=== PATIENT | male | born 1985 | race Caucasian/White ===

== ENCOUNTER 2018-09-02 17:12 | Inpatient (IN) | payer OTHER ==
[~2018-09-02] VITALS: Ht 180.3 cm; Wt 165.1 kg
[2018-09-02] MEDS: MORPHINE SULFATE 4 MG/ML SYR IVP PRN (07:00)
[2018-09-02 17:19] VITALS: BP 127/77
--- NOTE | 2018-09-02 17:23 | NUR ---
PT AMB TO RESTROOM FOR URINE SAMPLE. WILL THEN GO TO LOBBY. VSS.
[2018-09-02 18:04] LABS: BASOPHILS # (AUTO) 0.1 K/uL (0.00-0.22); BASOPHILS % (AUTO) 0.8 % (0.0-2.0); EOSINOPHILS # (AUTO) 0.1 K/uL (0-0.4); EOSINOPHILS % (AUTO) 0.9 % (0.0-4.0); HEMATOCRIT 42.2 % (36-52); HEMOGLOBIN 13.9 g/dL (12.0-18.0); LYMPHOCYTES # (AUTO) 2.8 K/uL (2.0-11.5); LYMPHOCYTES % (AUTO) 21.8 % (20.5-51.1); MEAN CORPUSCULAR HEMOGLOBIN 28 pg (27-31); MEAN CORPUSCULAR HGB CONC 33 g/dL (33-37); MEAN CORPUSCULAR VOLUME 83.6 fL (80-94); MONOCYTES # (AUTO) 0.9 K/uL (0.8-1.0); MONOCYTES % (AUTO) 6.6 % (1.7-9.3); NEUTROPHILS # (AUTO) 9.1 K/uL (1.8-7.7); NEUTROPHILS % (AUTO) 69.9 % (42.2-75.2); PLATELET COUNT (AUTO) 489 K/uL (140-450); RED BLOOD CELL COUNT(AUTO) 5.05 MIL/uL (4.20-6.10)
[2018-09-02 18:24] LABS: ALBUMIN 3.1 g/dL (3.4-5.0); ANION GAP 12.2 (8-16); CARBON DIOXIDE 30.1 mmol/L (21-32); POTASSIUM 4.3 mmol/L (3.5-5.1); TOTAL BILIRUBIN 0.5 mg/dL (0.0-1.0)
--- NOTE | 2018-09-02 18:30 | NUR ---
STATUS IS UNCHANGED. VSS. WILL CONTINUE TO MONITOR.
--- NOTE | 2018-09-02 19:22 | NUR ---
PATIENT TO ER BED 3.
[2018-09-02] MEDS ORDERED: HYDROcodone/APAP 5/325 MG 1 TAB TAB PO ONE (19:50)
[2018-09-02] MEDS ORDERED: KETOROLAC 30 MG/ML VIAL IM ONE (19:50)
--- NOTE | 2018-09-02 20:00 | NUR ---
32 YO MALE PRESENTS TO ED FOR C/O ABDOMINAL PAIN TO RLQ AND LLQ. PT HAS PMH OF GALLSTONES AND DIVERTICULITIS. PT DENIES ALLERGIES. PT AAOX4 MOVING ALL EXTREMITIES, AMBULATING @ BEDSIDE. NSR 70S NO EDEMA NOTED. LUNGS CLEAR EVEN AND UNLABORED, ABD SOFT NON DISTENDED, HYPOACTIVE BOWEL SOUNDS NOTED. PT VOIDING. SKIN INTACT. WILL UPDATE ER MD WILL CONTINUE TO OBSERVE.
[2018-09-02] MEDS ORDERED: LEVOFLOXACIN 750 MG/D5W PREMIX 150 ML IV ONE (20:15)
[2018-09-02] MEDS ORDERED: metroNIDAZOLE 500 MG/NS PREMIX 100 ML IV ONE (20:15)
[2018-09-02] MEDS ORDERED: KETOROLAC 30 MG/ML VIAL IVP ONE (20:15)
[2018-09-02] MEDS ORDERED: NACL 0.9% 2,000 ML IV ONE (20:15)
[2018-09-02 20:35] LABS: PROTHROMBIN TIME 10.7 secs (10.8-13.4)
[2018-09-02] MEDS ORDERED: ACETAMINOPHEN 325 MG TAB PO PRN (21:05)
[2018-09-02 21:30] VITALS: BP 104/50
[2018-09-02] MEDS: NACL 0.9% 1,000 ML IV SCH (21:30)
--- NOTE | 2018-09-02 21:35 | NUR ---
Patient will be admitted to care of dr. moore. Admited to [facility]. Will go to room 120a. Belongings list completed. Report to ki at bedside given.
--- NOTE | 2018-09-02 21:38 | NUR ---
RECEIVED PT FROM ER VIA DIDI. PT AWAKE, ALERT AND ORIENTED X 4. PT AMBULATORY. MED-SURG PT.ORIENTED TO UNIT ROUTINES. PT. NOT IN PAIN AT THIS TIME AND NOT IN RESPIRATORY DISTRESS. WITH IV INFUSING ON RIGHT AC. G 20, PATENT AND INFUSING WELL.POC REVIEWED. PT PLACED AT LOWEST BED POSITION, CALL LIGHT WITHIN REACH
[2018-09-02] MEDS ORDERED: PIPERACILLIN/TAZOBACTAM 3.375 GM in DEXTROSE 5% 50 ML IV SCH (22:00)
[2018-09-02] MEDS ORDERED: PIPERACILLIN/TAZOBACTAM 3.375 GM VIAL IV ONE (22:22)
[2018-09-03] VITALS: BP 106/50
--- NOTE | 2018-09-03 00:05 | NUR ---
PT SLEEPING IN BED. COMFORTABLE. STABLE. WILL CONTINUE TO MONITOR.
[2018-09-03] MEDS: MORPHINE SULFATE 4 MG/ML SYR IVP PRN ×3 (01:55→18:49)
--- NOTE | 2018-09-03 01:55 | NUR ---
PT C/O OF 06/05 PAIN. PAIN MEDS GIVEN ORDERED. DUE FOR REASSESSMENT. WILL CONTINUE TO MONITOR
--- NOTE | 2018-09-03 01:56 | NUR ---
PT FELT NAUSEOUS. MEDS GIVEN.
[2018-09-03] MEDS: ONDANSETRON 4 MG/2 ML VIAL IVP PRN (01:57)
--- NOTE | 2018-09-03 02:55 | NUR ---
PAIN REASSESSED. PAIN DECREASED VERBALIZED BY PT TO 2/10. TOLERABLE. PT WENT TO BATHROOM WITH STANDBY ASSIST, PT AMBULATORY. WILL CONTINUE TO MONITOR
[2018-09-03 04:00] VITALS: BP_SYST 108; BP_SYST 110; BP_DIAS 55; BP_DIAS 60
[2018-09-03] MEDS ORDERED: PIPERACILLIN/TAZOBACTAM 3.375 GM in DEXTROSE 5% 50 ML IV SCH (05:00)
[2018-09-03] MEDS ORDERED: PIPERACILLIN/TAZOBACTAM 3.375 GM VIAL IV ONE (05:22)
--- NOTE | 2018-09-03 07:00 | NUR ---
PT WAS SEEN BY DR. DIAZ HER TO BE DISCHARGE TODAY. AND WILL ARRANGE FOR TRANSPORT HOME Addendum: 09/03/18 at 0815 by Blanca Cooper RN WRONG PT
[2018-09-03] MEDS: NACL 0.9% 1,000 ML IV SCH ×2 (07:01→12:00)
--- NOTE | 2018-09-03 07:07 | NUR ---
PT C/O OF 06/05 PAIN GIVEN MORPHINE. INFORMED NEXT RN FOR PAIN REASSESMENT
--- NOTE | 2018-09-03 07:15 | NUR ---
ENDORSED TO AM SHIFT NURSE. PT IN STABLE CONDITION. MEDICATION FOR PAIN RECENTLY GIVEN DUE FOR PAIN REASSESSMENT.
--- NOTE | 2018-09-03 07:16 | NUR ---
RECEIVED PATIENT FROM DENTAL BILLING SPECIALIST NURSE AT BEDSIDE FOR CONTINUITY OF CARE. PT AWAKE, ALERT AND ORIENTED X 4. PT AMBULATORY. MED-SURG PT. IV ON RIGHT AC. G 20, PATENT AND INFUSING IVF WELL. UPDATED BOARD, UPDATED PATIENT ON PLAN OF CARE. PATIENT VERBALIZED UNDERSTANDING. SAFETY PRECAUTION IN PLACE, CALL LIGHT WITHIN REACH, WILL CONTINUE TO MONITOR PATIENT.
[2018-09-03 07:29] LABS: BASOPHILS # (AUTO) 0.1 K/uL (0.00-0.22); BASOPHILS % (AUTO) 0.5 % (0.0-2.0); EOSINOPHILS # (AUTO) 0.1 K/uL (0-0.4); HEMATOCRIT 37.6 % (36-52); HEMOGLOBIN 12.1 g/dL (12.0-18.0); LYMPHOCYTES # (AUTO) 2.3 K/uL (2.0-11.5); LYMPHOCYTES % (AUTO) 19.9 % (20.5-51.1); MEAN CORPUSCULAR HEMOGLOBIN 27 pg (27-31); MEAN CORPUSCULAR HGB CONC 32 g/dL (33-37); MEAN CORPUSCULAR VOLUME 84.1 fL (80-94); MONOCYTES # (AUTO) 0.8 K/uL (0.8-1.0); MONOCYTES % (AUTO) 7.2 % (1.7-9.3); NEUTROPHILS # (AUTO) 8.4 K/uL (1.8-7.7); NEUTROPHILS % (AUTO) 71.4 % (42.2-75.2); PLATELET COUNT (AUTO) 415 K/uL (140-450); RED BLOOD CELL COUNT(AUTO) 4.47 MIL/uL (4.20-6.10); RED CELL DISTRIBUTION WIDTH 14.1 % (11.6-13.7); WHITE BLOOD COUNT (AUTO) 11.8 K/uL (4.8-10.8)
[2018-09-03 08:00] VITALS: BP 113/56
[2018-09-03 08:09] LABS: ALBUMIN 2.5 g/dL (3.4-5.0); ANION GAP 12.5 (8-16); CARBON DIOXIDE 26.8 mmol/L (21-32); POTASSIUM 4.3 mmol/L (3.5-5.1); TOTAL BILIRUBIN 0.4 mg/dL (0.0-1.0)
--- NOTE | 2018-09-03 08:25 | NUR ---
PATIENT HAS BEEN SCREENED AND CATEGORIZED HIGH NUTRITION RISK. PATIENT WILL BE SEEN WITHIN 1-2 DAYS OF ADMISSION. 09/03/18-09/04/[address]
[2018-09-03] MEDS: ENOXAPARIN 40 MG/0.4 ML SYR SUBQ SCH (08:41)
--- NOTE | 2018-09-03 08:41 | NUR ---
ORDERED MEDICATION GIVEN. PATIENT TOLERATED IT WELL. NO SIGNS OF DISTRESS OR SOB NOTED ON ROOM AIR. WILL CONTINUE TO MONITOR PATIENT.
--- NOTE | 2018-09-03 11:12 | NUR ---
PATIENT C/O NAUSEA, ZOFRAN OFFERED. PATIENT REFUSED FOR NOW. PATIENT REPOSITIONED IN BED BY SELF FOR COMFORT. WILL REASSESS IF PATIENT NEEDS ZOFRAN OR NOT.
--- NOTE | 2018-09-03 11:39 | NUR ---
09/03/18 RD FOLLOW UP COMPLETED PLEASE REFER TO NUTRITION ASSESSMENT UNDER CARE ACTIVITY FOR ESTIMATED NUTRITIONAL NEEDS. CONTINUE REGULAR DIET TOLERATED DIETITIAN PROVIDED NUTRITIONAL EDUCATION ON THE DIFFERENT DIETS PATIENT SHOULD FOLLOW DEPENDING ON SYMPTOMS. RD TO FOLLOW-UP 3-5 DAYS, MODERATE RISK JUJU MALDONADO RD
[2018-09-03] MEDS: PIPER/TAZO 3.375GM/D5W PREMIX 50 ML IV SCH ×2 (12:44→22:55)
--- NOTE | 2018-09-03 12:44 | NUR ---
ORDERED MEDICATION GIVEN. PATIENT TOLERATED IT WELL. NO SIGNS OF DISTRESS OR SOB NOTED ON ROOM AIR. WILL CONTINUE TO MONITOR PATIENT.
--- NOTE | 2018-09-03 14:13 | NUR ---
PATIENT C/O 7/10 ABD PAIN, IVP PRN MORPHINE GIVEN. PATIENT TOLERATED IT WELL. PATIENT NOW RESTING IN BED, WILL CONTINUE TO MONITOR PATIENT.
[2018-09-03 16:00] VITALS: BP 106/70
--- NOTE | 2018-09-03 17:16 | NUR ---
PATIENT REPORT GIVEN TO JANITOR HEAD NURSE AT BEDSIDE FOR CONTINUITY OF CARE. PATIENT RESTING AND IN STABLE CONDITION. Addendum: 09/03/18 at 1 by Pito Garces RN CORRECT TIME: 1915. ALSO ENDORSED PAIN REASSESSMENT TO JANITOR HEAD NURSE.
--- NOTE | 2018-09-03 18:49 | NUR ---
PATIENT C/O 05/05 ABD PAIN, IVP PRN MORPHINE GIVEN. PATIENT TOLERATED IT WELL. CONSENT FOR ABD/PELVIS WITH CT CONTRAST OBTAINED. URINE SAMPLE OBTAINED AND DROPPED OFF TO LAB. PATIENT NOW RESTING IN BED, WILL CONTINUE TO MONITOR PATIENT.
--- NOTE | 2018-09-03 19:20 | NUR ---
RECD. RESTING IN BED, AWAKE, A/OX4, OBESE. RESPIRATION EVEN AND UNLABORED. IV OF NS AT 100 ML/HR INFUSING, RIGHT AC G20. WATCHING TV. PLAN OF CARE FOR THE SHIFT DISCUSSED. VERBALIZED UNDERSTANDING. DENIES PAIN 0/10.
[2018-09-03 19:47] LABS: APPEARANCE,URINE CLEAR (CLEAR); BILIRUBIN,URINE NEGATIVE (NEGATIVE); BLOOD, URINE NEGATIVE (NEGATIVE); COLOR,URINE YELLOW (YELLOW); LEUKOCYTE ESTERASE ,URINE NEGATIVE (NEGATIVE); NITRITE, URINE NEGATIVE (NEGATIVE); UGLUCOSE NEGATIVE (NEGATIVE)
--- NOTE | 2018-09-03 19:58 | NUR ---
Patient's Plan of Care was discussed and reviewed with SENIOR PAYROLL ADMINISTRATOR: DANTE
--- NOTE | 2018-09-03 22:00 | NUR ---
STARTED TO DRINK THE PO CONTRAST FOR CT OF ABD/PELVIS.
--- NOTE | 2018-09-03 23:45 | NUR ---
FINISHED DRINKING THE PO CONTRAST. AMBULATED FOR 15 MINUTES IN THE HALLWAY.
--- NOTE | 2018-09-04 01:30 | NUR ---
TO RADIOLOGY FOR CT OF ABD/PELVIS VIA W/C ACCOMPANIED BY TECH.
[2018-09-04 01:50] VITALS: BP 132/70
[2018-09-04] MEDS: MORPHINE SULFATE 4 MG/ML SYR IVP PRN (01:50)
--- NOTE | 2018-09-04 02:00 | NUR ---
BACK TO ROOM FROM CT. MADE COMFORTABLE IN BED.
[2018-09-04] MEDS: NACL 0.9% 1,000 ML IV SCH ×2 (03:01→09:00)
--- NOTE | 2018-09-04 03:01 | NUR ---
REFUSED TO BE CONNECTED TO IV MACHINE, WANTS IN THE MORNING FOR EASY MOVING OUT TO BED TO .
[2018-09-04] MEDS: PIPER/TAZO 3.375GM/D5W PREMIX 50 ML IV SCH ×2 (05:44→12:24)
[2018-09-04 07:10] LABS: BASOPHILS # (AUTO) 0.1 K/uL (0.00-0.22); BASOPHILS % (AUTO) 0.6 % (0.0-2.0); EOSINOPHILS # (AUTO) 0.2 K/uL (0-0.4); EOSINOPHILS % (AUTO) 1.6 % (0.0-4.0); HEMATOCRIT 34.9 % (36-52); HEMOGLOBIN 11.6 g/dL (12.0-18.0); LYMPHOCYTES # (AUTO) 2.5 K/uL (2.0-11.5); LYMPHOCYTES % (AUTO) 24.9 % (20.5-51.1); MEAN CORPUSCULAR HEMOGLOBIN 28 pg (27-31); MEAN CORPUSCULAR HGB CONC 33 g/dL (33-37); MONOCYTES # (AUTO) 0.6 K/uL (0.8-1.0); MONOCYTES % (AUTO) 6.6 % (1.7-9.3); NEUTROPHILS # (AUTO) 6.5 K/uL (1.8-7.7); NEUTROPHILS % (AUTO) 66.3 % (42.2-75.2); PLATELET COUNT (AUTO) 424 K/uL (140-450); RED BLOOD CELL COUNT(AUTO) 4.21 MIL/uL (4.20-6.10); RED CELL DISTRIBUTION WIDTH 13.9 % (11.6-13.7); WHITE BLOOD COUNT (AUTO) 9.9 K/uL (4.8-10.8)
[2018-09-04 07:20] LABS: ANION GAP 10.2 (8-16); CARBON DIOXIDE 26.9 mmol/L (21-32); POTASSIUM 4.1 mmol/L (3.5-5.1)
--- NOTE | 2018-09-04 07:30 | NUR ---
CONDITION REMAIN STABLE. ENDORSED TO AM SHIFT NURSES FOR CONTINUITY OF CARE.
--- NOTE | 2018-09-04 08:00 | NUR ---
RECEIVED REPORT FROM KALE COCHRAN FOR CONTINUITY OF CARE. PATIENT AWAKE ALERT AND ORIENTED X 4 NO S/S OF RESP DISTRESS NOTED ABLE TO MAKE NEEDS KNOWN. IV SITE RT AC G 20 INTACT AND PATENT. IVF INFUSING WELL PLAN OF CARE DISCUSSED WITH THE PATIENT VITALS STABLE WILL CONTINUE TO MONITOR.
[2018-09-04] MEDS: ENOXAPARIN 40 MG/0.4 ML SYR SUBQ SCH (09:00)
--- NOTE | 2018-09-04 09:00 | NUR ---
NO MEDS DUE TO BE GIVEN. DR CONDON VISITED PATIENT NEW ORDER CONSULT TO DR ORTEZ
--- NOTE | 2018-09-04 10:30 | NUR ---
DR ORTEZ VISITED PATIENT NEW ORDER TO TRANSFER TO HIGHER LEVEL OF CARE.
--- NOTE | 2018-09-04 11:42 | NUR ---
CM NOTE RECEIVED ORDER TO TRANSFER TO [facility]. [facility] KHAI MORAES MADE AWARE. PER [facility] KHAI MORAES, FOR [facility]ORT [id number]. SPOKE WITH LIZZY, [facility] ENVIRONMENT COORDINATOR PH# [phone] WHO REQUESTED FOR FACESHEET, ORDER TO TRANSFER, H&P, PROGRESS NOTES, IMAGING RESULT, LABS AND MED LIST TO BE FAXED TO [facility] AT [phone]. FAXED INFORMATION. I ALSO GAVE HER THE NUMBER TO THE NURSING STATION WHERE PATIENT IS IN CASE THEY WOULD HAVE A BED AVAILABLE AT A LATER TIME. CHARGE NURSE WESTLEY PRABHAKAR. Addendum: 09/04/18 at 1149 by Denisha Blanchard CM CORRECTION [facility] ENVIRONMENT COORDINATOR PH# [phone]
[2018-09-04 12:00] VITALS: BP 126/77
--- NOTE | 2018-09-04 12:00 | NUR ---
SLEEPING NO COMPLAIN OF PAIN VITALS STABLE STILL WAITING FOR TRANSFER.
[2018-09-04] MEDS: ONDANSETRON 4 MG/2 ML VIAL IVP PRN (12:24)
--- NOTE | 2018-09-04 14:48 | NUR ---
CM NOTE PER LIZZY OF [facility] TRANSFER [facility], PATIENT CAN GO TO [address] CONDON TO PASS BY THE ER ADMITTING FIRST, NUMBER TO CALL FOR REPORT [phone] [facility], PATIENT WILL BE PICKED UP BY DELFINO TOLBERT AT 5PM OR 6PM TODAY GOING TO [facility] CTR TO PASS BY THE ER ADMITTING FIRST CHARGE NURSE WESTLEY PRABHAKAR
--- NOTE | 2018-09-04 15:00 | NUR ---
I GOT A CALL FRO Cabrera RIDLEY THAT PATIENT CAN BE TRANSFERED TO [facility] UNDER THE CARE OF DR CONDON AND SURGEON WILL BE DR EPSTEIN. INFORMED PATIENT AND PATIENT AGREED NOTIFIED HIS FAMILY ,DENIES ANY PAIN STABLE CONDITION.
--- NOTE | 2018-09-04 16:10 | NUR ---
DISCHARGE PATIENT TO [facility] ROOM 591B VIA AMBULANCE ALL DISCHARGE INSTRUCTION GIVEN VERBALIZED UNDERSTANDING , REPORT GIVEN TO BLANCA WILKINSON ,STABLE CONDITION UPON DISCHARGE.
== END 2018-09-04 16:10 | disposition short-term general hospital (02) | DRG 244 ==
LOC: MED 17:12 → MTU 21:01
PROVIDERS: ADMIT Internal Medicine; ATTEND Internal Medicine
DX: K57.20 Diverticulitis of large intestine with perforation and abscess without bleeding (principal); K63.2 Fistula of intestine; E66.01 Morbid (severe) obesity due to excess calories; N32.1 Vesicointestinal fistula; Z68.43 Body mass index [BMI] 50.0-59.9, adult
CPT/HCPCS: 36415; 80048; 80053; 81003; 83605; 83690; 85025; 85610; 87040; 87081; 87086; 96372; 96374; 99285; J1650; J1885; J1956; J2270; J2405; J2543; J3490; J7030; J7060; Q9967

== ENCOUNTER 2018-11-08 01:25 | Inpatient (IN) | payer OTHER ==
[~2018-11-08] VITALS: Ht 180.3 cm; Wt 145.6 kg
[2018-11-08 01:38] VITALS: BP 127/90
--- NOTE | 2018-11-08 01:40 | NUR ---
ASSUMED CARE OF PT AT THIS TIME. C/O REDNESS AND PURULENT DRAINAGE AROUND OSTOMY SITE/UMBILICUS X 2 DAYS. AAOX4 WITH EVEN AND STEADY GAIT; PATIENT STATES PAIN OF 8/10; VSS; PATIENT POSITIONED FOR COMFORT; HOB ELEVATED; BEDRAILS UP X2; BED DOWN. ER MD MADE AWARE OF PT STATUS. WILL CONTINUE TO MONITOR.
[2018-11-08] MEDS ORDERED: BACITRACIN OINT 500 UNITS/GM PKT TP ONE (01:55)
[2018-11-08] MEDS ORDERED: MORPHINE SULFATE 4 MG/ML SYR IVP ONE ×2 (02:05→03:40)
[2018-11-08 02:21] LABS: BASOPHILS # (AUTO) 0.1 K/uL (0.00-0.22); BASOPHILS % (AUTO) 1.5 % (0.0-2.0); EOSINOPHILS # (AUTO) 0.3 K/uL (0-0.4); EOSINOPHILS % (AUTO) 3.1 % (0.0-4.0); HEMOGLOBIN 10.7 g/dL (12.0-18.0); LYMPHOCYTES # (AUTO) 2.9 K/uL (2.0-11.5); LYMPHOCYTES % (AUTO) 30.2 % (20.5-51.1); MEAN CORPUSCULAR HEMOGLOBIN 26 pg (27-31); MEAN CORPUSCULAR HGB CONC 33 g/dL (33-37); MEAN CORPUSCULAR VOLUME 80.5 fL (80-94); MONOCYTES # (AUTO) 0.5 K/uL (0.8-1.0); MONOCYTES % (AUTO) 4.8 % (1.7-9.3); NEUTROPHILS # (AUTO) 5.8 K/uL (1.8-7.7); NEUTROPHILS % (AUTO) 60.4 % (42.2-75.2); PLATELET COUNT (AUTO) 477 K/uL (140-450); RED CELL DISTRIBUTION WIDTH 16.1 % (11.6-13.7); WHITE BLOOD COUNT (AUTO) 9.6 K/uL (4.8-10.8)
[2018-11-08 02:33] LABS: POTASSIUM 3.4 mmol/L (3.5-5.1)
[2018-11-08 02:34] LABS: ANION GAP 13.4 (8-16); CREATININE 1.2 mg/dL (0.7-1.3)
[2018-11-08 02:40] LABS: ALBUMIN 3.1 g/dL (3.4-5.0); TOTAL BILIRUBIN 0.4 mg/dL (0.0-1.0)
[2018-11-08 02:44] LABS: APPEARANCE,URINE CLEAR (CLEAR); BILIRUBIN,URINE NEGATIVE (NEGATIVE); BLOOD, URINE NEGATIVE (NEGATIVE); COLOR,URINE YELLOW (YELLOW); LEUKOCYTE ESTERASE ,URINE NEGATIVE (NEGATIVE); NITRITE, URINE NEGATIVE (NEGATIVE); UGLUCOSE NEGATIVE (NEGATIVE)
--- NOTE | 2018-11-08 03:20 | NUR ---
NEW COLOSTOMY BAG PLACED AT THIS TIME.
[2018-11-08] MEDS ORDERED: CEPHALEXIN 500 MG CAP PO ONE (03:25)
[2018-11-08] MEDS ORDERED: SULFAMETH/TRIMETH DS 800/160MG 1 TAB PO ONE (03:25)
--- NOTE | 2018-11-08 03:45 | NUR ---
PT REMOVED COLOSTOMY BAG DUE TO PAIN. PT WILL BE ADMITTED.
--- NOTE | 2018-11-08 04:05 | NUR ---
PT RESTING. NAD. VSS. PT AWAITS ADMISSION. WILL CONTINUE TO MONITOR.
--- NOTE | 2018-11-08 05:20 | NUR ---
PT BROUGHT UP VIA GURNEY AND AMBULATED TO 119B. REPORT RECEIVED FROM IZABELLA WILKINSON RECREATION THERAPY DIRECTOR ER NURSE AT BEDSIDE FOR CONTINUITY OF CARE, PT IN STABLE CONDITION. PT AOX4 SKIN INTACT EXCEPT FOR AREAS OF EXSCORIATED SKIN ON LOWER ABD. PT HAS OSTOMY SITE ON LOWER ABD. PT REPORT BEING UNABLE TO WEAR COLOSTOMY BAG DUE TO SKIN BEING EXCORIATED AND LEAKING FLUID. MRSA ADMISSION SWAB DONE V/S FOLLOWS T 97.6 P 83 R 20 B/P 139/75 02 98% WITH R/A..
--- NOTE | 2018-11-08 05:20 | NUR ---
Patient will be admitted to [facility]. Admitted to MED/SURG. Will go to room 119B. Belongings list completed. Report to JAJA BALLARD.
--- NOTE | 2018-11-08 05:45 | NUR ---
CALLED DR. CONDON MANAGER MARKET DR. MAXWELL LEFT MESSAGE, REGARDING ADMISSION, AWAITING CALL BACK
--- NOTE | 2018-11-08 06:30 | NUR ---
RECEIVED CALL BACK FROM DR. MAXWELL, NEW ORDERS NOTED.
[2018-11-08] MEDS: NACL 0.45% 1,000 ML IV SCH ×2 (06:40→21:00)
[2018-11-08 07:09] VITALS: BP 139/75
--- NOTE | 2018-11-08 07:20 | NUR ---
REPORT GIVEN TO DYANA RN DAYSHIFT NURSE AT BEDSIDE FOR CONTINUITY OF CARE, PT INSTABLE CONDITION.
--- NOTE | 2018-11-08 07:25 | NUR ---
RECEIVED REPORT FROM PM NURSE AT BEDSIDE. PT LYING ON HIS BED. HAS THE COLOSTOMY SITE OPEN , LEAKING FLUIDS AND STOOL FROM THE SITE . SURROUNDING AREA IS RED IN COLOR. SKIN IS INTACT OTHER THAN THE COLON SITE. PT COMPLAINING OF PAIN AT THIS TIME. PT HAS LF AC 22 G. IVF INFUSING WELL. PT IS ON REGULAR DIET. CALL LIGHT WITHIN PT REACH. INFORMED HIME TO USE CALL LIGHT FOR ANY HELP. WILL CONTINUE TO MONITOR PT.
[2018-11-08] MEDS: MORPHINE SULFATE 4 MG/ML SYR IVP PRN ×3 (08:27→21:05)
[2018-11-08] MEDS: PIPER/TAZO 3.375GM/D5W PREMIX 50 ML IV SCH ×3 (08:28→17:53)
--- NOTE | 2018-11-08 09:00 | NUR ---
ADMINISTERED MEDS TO PT ORDERED. PT HAS THE COLOSTOMY SITE LEAKING. PUT THE COLOSTOMY BAG . PT COMPLAINING FOP PAIN AT THE SITE. ADMINISTERED MEDS. NO SIGN OF DISTRESS NOTED. CALL LIGHT WITHIN PT REACH. WILL CONTINUE TO MONITOR PT.
--- NOTE | 2018-11-08 11:00 | NUR ---
PT OFF THE UNIT. WENT FOR CT ABDOMEN WITH COOKER SYRUP TO RADIOLOGY. PT IN STABLE CONDITION.
--- NOTE | 2018-11-08 11:58 | NUR ---
ADMINISTERED MEDS TO PT. TOLERATED WELL. PT SLEEPING AT THIS TIME. NO SIGN OF DISTRESS. WILL CONTINUE TO MONITOR PT.
--- NOTE | 2018-11-08 13:00 | NUR ---
CHECKED ON PT. SLEEPING ON HIS BED AT THIS TIME. NO SIGN OF DISTRESS NOTED. CALL LIGHT WITHIN PT REACH. WILL CONTINUE TO MONITOR PT.
--- NOTE | 2018-11-08 14:55 | NUR ---
CHECKED ON PT. COMPLAIN OF PAIN AND ITCHING AT THE PERIPHERAL REGION OF THE STOMA, CLEANED WITH NS , PAT DRY AND PUT DRY DRESSING ON THE SITE. . PUT THE COLOSTOMY BAG AT SITE. MEDICATED WITH PAIN MEDS. PT TOLERATED WELL. WILL REASSESS PAIN AFTER HOUR. CALL LIGHT WITHIN PT REACH. INFORMED TO USE CALL LIGHT FOR ANY HELP. WILL CONTINUE TO MONITOR PT.
[2018-11-08 16:00] VITALS: BP 139/99
--- NOTE | 2018-11-08 16:00 | NUR ---
CHANGED THE COLOSTOMY BAG, PREVIOUS BAG WAS LEAKING FROM THE PERIPHERAL REGION. PT STATES BURNING SENSATION AT OSTOMY PERIPHERAL REGION IS TOLERABLE. NO SIGN OF DISTRESS NOTED. CALL LIGHT WITHIN PT REACH. INFORMED HIM TO USE CALL LIGHT FOR ANY HELP. WILL CONTINUE TO MONITOR PT.
--- NOTE | 2018-11-08 18:02 | NUR ---
ADMINISTERED MEDS TO PT ORDERED. NO SIGN OF DISTRESS NOTED. COLOSTOMY BAG WORKING AT THIS TIME . NO SIGN OF DISTRESS NOTED. WILL CONTINUE TO MONITOR PT.
--- NOTE | 2018-11-08 19:15 | NUR ---
ENDORSED PT TO PM NURSE AT BEDSIDE. PT IN STABLE CONDITION.
--- NOTE | 2018-11-08 19:16 | NUR ---
RECEIVED REPORT FROM JAJA TURPIN FOR CONTINUITY OF CARE. PT IS A/OX4 ON ROOM AIR. PT IS ABLE TO MAKE NEEDS KNOWN, ABLE TO FOLLOW COMMANDS. PT IS ON BEDREST AND SKIN IS INTACT. PT HAS 18G IV TO LEFT AC, ASYMPTOMATIC AND INTACT. COLOSTOMY BAG IN PLACE. VITAL SIGNS WITHIN NORMAL LIMITS. PT STABLE, DENIES PAIN, NO SIGNS OF DISTRESS NOTED AT THIS TIME. PT POSITIONED FOR COMFORT. BED IN LOWEST POSITION, BED ALARM ON. CALL LIGHT WITHIN REACH, WILL CONTINUE TO MONITOR.
--- NOTE | 2018-11-08 19:50 | NUR ---
CHANGED COLOSTOMY BAG AND CLEANED SITE, BECAUSE IT WAS LEAKING. PT TOLERATED WELL.
--- NOTE | 2018-11-08 20:45 | NUR ---
WOUND CARE NURSE AT BEDSIDE.
--- NOTE | 2018-11-08 21:04 | NUR ---
PT. WITH KIMBERLY-OSTOMY SKIN MULTIPLE EROSION AND SKIN IRRITATION, REDNESS WITH 6X6CM OSTOMY IS FUNCTIONING. RECOMMENDATIONS OSTOMY CARE PER PROTOCOL AND DURING OSTOMY CARE PLEASE FOLLOW SKIN CARE INSTRUCTION BELOW: -APPLY SKIN PREP TO KIMBERLY-OSTOMY SKIN, -APPLY STOMA ADHESIVE POWDER TO IRRITATED SKIN BY DUSTING -USE AN ANGEL SEAL AROUND OSTOMY, USE 2- PIECES OSTOMY DEVICES, APPLY WAFER TO OSTOMY AND ATTACHED POUCH TO WAFER., CHANGE WAFER WEEKLY. EMPTY AND RINSE POUCH WHEN IT IS 2/3 FULL. -CONTINUE TO FOLLOW UP OSTOMY NURSE APPOINTMENT Q FRIDAY UPON DISCHARGE ALL ABOVE RECOMMENDATIONS DISCUSSED WITH PT. AND PRIMARY RN. PT. VERBALIZES UNDERSTANDING
--- NOTE | 2018-11-09 | NUR ---
VITAL SIGNS WITHIN NORMAL LIMITS. PT STABLE, DENIES PAIN, NO SIGNS OF DISTRESS NOTED AT THIS TIME. PT POSITIONED FOR COMFORT. BED IN LOWEST POSITION, BED ALARM ON. CALL LIGHT WITHIN REACH, WILL CONTINUE TO MONITOR.
[2018-11-09] MEDS: PIPER/TAZO 3.375GM/D5W PREMIX 50 ML IV SCH ×4 (00:20→18:26)
[2018-11-09] MEDS: MILD SOAP AND WATER TP SCH ×2 (00:20→16:37)
--- NOTE | 2018-11-09 04:15 | NUR ---
NO SIGNS OF DISTRESS NOTED AT THIS TIME. PT POSITIONED FOR COMFORT. BED IN LOWEST POSITION, BED ALARM ON. CALL LIGHT WITHIN REACH, WILL CONTINUE TO MONITOR.
[2018-11-09] MEDS: MORPHINE SULFATE 4 MG/ML SYR IVP PRN ×3 (05:25→18:26)
--- NOTE | 2018-11-09 06:30 | NUR ---
OSTOMY BAG LEAKING AGAIN. FOLLOWED WOUND CARE NURSE'S INSTRUCTIONS AND REPLACED OSTOMY BAG AGAIN.
[2018-11-09 06:33] LABS: BASOPHILS # (AUTO) 0.1 K/uL (0.00-0.22); BASOPHILS % (AUTO) 1.1 % (0.0-2.0); EOSINOPHILS # (AUTO) 0.3 K/uL (0-0.4); EOSINOPHILS % (AUTO) 4.5 % (0.0-4.0); HEMATOCRIT 31.5 % (36-52); HEMOGLOBIN 10.2 g/dL (12.0-18.0); LYMPHOCYTES # (AUTO) 1.3 K/uL (2.0-11.5); MEAN CORPUSCULAR HEMOGLOBIN 26 pg (27-31); MEAN CORPUSCULAR HGB CONC 32 g/dL (33-37); MEAN CORPUSCULAR VOLUME 80.9 fL (80-94); MONOCYTES # (AUTO) 0.5 K/uL (0.8-1.0); MONOCYTES % (AUTO) 5.9 % (1.7-9.3); NEUTROPHILS # (AUTO) 5.5 K/uL (1.8-7.7); NEUTROPHILS % (AUTO) 71.5 % (42.2-75.2); PLATELET COUNT (AUTO) 423 K/uL (140-450); RED BLOOD CELL COUNT(AUTO) 3.89 MIL/uL (4.20-6.10); RED CELL DISTRIBUTION WIDTH 16.4 % (11.6-13.7); WHITE BLOOD COUNT (AUTO) 7.6 K/uL (4.8-10.8)
[2018-11-09 07:36] LABS: ANION GAP 14.9 (8-16); CARBON DIOXIDE 23.6 mmol/L (21-32); CREATININE 1.3 mg/dL (0.7-1.3); POTASSIUM 3.5 mmol/L (3.5-5.1)
--- NOTE | 2018-11-09 07:36 | NUR ---
ENDORSED PT TO DAY SHIFT JAJA THOMAS FOR CONTINUITY OF CARE. PT IN STABLE CONDITION.
--- NOTE | 2018-11-09 07:37 | NUR ---
RECEIVED REPORT FROM SEAT INSTALLER NURSE. PT IN STABLE CONDITION. RESPIRATIONS EVEN AND UNLABORED. IV INTACT AND PATENT. SAFETY MEASURES IN PLACE. CALL LIGHT AT BEDSIDE. BED IN LOW POSITION. WILL CONTINUE TO MONITOR.
--- NOTE | 2018-11-09 07:56 | NUR ---
PATIENT HAS BEEN SCREENED AND CATEGORIZED HIGH NUTRITION RISK. PATIENT WILL BE SEEN WITHIN 1-2 DAYS OF ADMISSION. 11/09/[address]
[2018-11-09 08:00] VITALS: BP 124/85
--- NOTE | 2018-11-09 09:00 | NUR ---
PT LYING IN BED IN STABLE CONDITION. RESPIRATIONS EVEN AND UNLABORED. WILL CONTINUE TO MONITOR.
[2018-11-09] MEDS ORDERED: ACETAMINOPHEN 325 MG TAB PO PRN (09:55)
[2018-11-09 12:00] VITALS: BP 148/82
--- NOTE | 2018-11-09 12:00 | NUR ---
GAVE PAIN MEDICATION AT THIS TIME. PT TOLERATED WELL.
[2018-11-09] MEDS: NACL 0.45% 1,000 ML IV SCH ×2 (12:55→22:41)
--- NOTE | 2018-11-09 14:34 | NUR ---
11/09/18 RD INITIAL ASSESSMENT COMPLETED PLEASE REFER TO NUTRITION ASSESSMENT UNDER CARE ACTIVITY FOR ESTIMATED NUTRITIONAL NEEDS. 1. RECOMMEND LOW RESIDUAL DIET TOLERATED 2. RECOMMEND MULTIVITAMIN QD 3. RD PROVIDED NUTRITION EDUCATION ON COLOSTOMY 4. ENCOURAGE INCREASING PO INTAKE 5. RD TO FOLLOW-UP 2-3 DAYS, HIGH RISK JUJU MALDONADO, RD
[2018-11-09] MEDS: HYDROcodone/APAP 5/325 MG 1 TAB TAB PO PRN ×2 (14:46→20:36)
--- NOTE | 2018-11-09 16:00 | NUR ---
PT STATED THAT HE WILL BECOME HOMELESS TODAY. PT STATED HE WAS SUPPOSED TO PAY HIS PART OF THE RENT, BUT HAS BEEN UNABLE TO WORK DUE TO OSTOMY BAG. CASE MANAGEMENT IS AWARE, SPOKE WITH ANAM.
--- NOTE | 2018-11-09 16:45 | NUR ---
PICKED UP TURKEY SANDWICH FROM [facility], PER PT REQUEST. PT ATE 100% OF SANDWICH. WILL CONTINUE TO MONITOR.
--- NOTE | 2018-11-09 19:19 | NUR ---
GAVE REPORT TO PAYROLL PROFESSIONAL NURSE FOR CONTINUITY OF CARE. PT IN STABLE CONDITION.
--- NOTE | 2018-11-09 19:20 | NUR ---
RECEIVED REPORT FROM JAJA THOMAS FOR CONTINUITY OF CARE. PT IS A/OX4 ON ROOM AIR. PT IS ABLE TO MAKE NEEDS KNOWN, ABLE TO FOLLOW COMMANDS. PT IS ON BEDREST AND SKIN IS INTACT. PT HAS 18G IV TO LEFT AC, ASYMPTOMATIC AND INTACT. COLOSTOMY BAG IN PLACE. VITAL SIGNS WITHIN NORMAL LIMITS. PT STABLE, DENIES PAIN, NO SIGNS OF DISTRESS NOTED AT THIS TIME. PT POSITIONED FOR COMFORT. BED IN LOWEST POSITION, BED ALARM ON. CALL LIGHT WITHIN REACH, WILL CONTINUE TO MONITOR.
--- NOTE | 2018-11-09 22:24 | NUR ---
PT SKIN IRRITATED BECAUSE OSTOMY BAG LEAKING. CLEANED SITE AND PT REQUESTED TO WAIT TO PUT ON NEW OSTOMY BAG. HE WANTS TO KEEP IT OPEN TO AIR AND CLEAN STOOL IT COMES OUT. INSTRUCTED PT TO CALL WHEN HE IS READY TO PUT NEW BAG ON. PT VERBALIZED UNDERSTANDING.
[2018-11-10] VITALS: BP 133/80
[2018-11-10] MEDS: PIPER/TAZO 3.375GM/D5W PREMIX 50 ML IV SCH ×4 (00:36→18:12)
[2018-11-10] MEDS: MORPHINE SULFATE 4 MG/ML SYR IVP PRN ×4 (00:43→21:47)
[2018-11-10] MEDS: MILD SOAP AND WATER TP SCH ×2 (00:44→12:12)
--- NOTE | 2018-11-10 01:19 | NUR ---
WOUND CARE DONE ON PT INSTRUCTED BY WOUND CARE NURSE. USED LAST ANGEL SEAL. WILL ENDORSE TO GET MORE.
--- NOTE | 2018-11-10 03:43 | NUR ---
PT STABLE, NO SIGNS OF DISTRESS NOTED AT THIS TIME. PT POSITIONED FOR COMFORT. BED IN LOWEST POSITION, BED ALARM ON. CALL LIGHT WITHIN REACH, WILL CONTINUE TO MONITOR.
[2018-11-10 06:37] LABS: BASOPHILS # (AUTO) 0.1 K/uL (0.00-0.22); BASOPHILS % (AUTO) 0.7 % (0.0-2.0); EOSINOPHILS # (AUTO) 0.5 K/uL (0-0.4); HEMATOCRIT 31.7 % (36-52); HEMOGLOBIN 10.3 g/dL (12.0-18.0); LYMPHOCYTES % (AUTO) 23.3 % (20.5-51.1); MEAN CORPUSCULAR HEMOGLOBIN 27 pg (27-31); MEAN CORPUSCULAR HGB CONC 33 g/dL (33-37); MEAN CORPUSCULAR VOLUME 81.4 fL (80-94); MONOCYTES # (AUTO) 0.6 K/uL (0.8-1.0); MONOCYTES % (AUTO) 7.1 % (1.7-9.3); NEUTROPHILS # (AUTO) 5.4 K/uL (1.8-7.7); NEUTROPHILS % (AUTO) 62.9 % (42.2-75.2); PLATELET COUNT (AUTO) 412 K/uL (140-450); RED CELL DISTRIBUTION WIDTH 16.4 % (11.6-13.7); WHITE BLOOD COUNT (AUTO) 8.6 K/uL (4.8-10.8)
[2018-11-10 06:54] LABS: CARBON DIOXIDE 25.6 mmol/L (21-32); CREATININE 1.2 mg/dL (0.7-1.3); POTASSIUM 3.6 mmol/L (3.5-5.1)
--- NOTE | 2018-11-10 07:20 | NUR ---
ENDORSED PT TO DAY SHIFT JAJA MELENDEZ FOR CONTINUITY OF CARE. PT IN STABLE CONDITION.
--- NOTE | 2018-11-10 07:21 | NUR ---
RECEIVED REPORT FROM READING INTERVENTIONIST NURSE. PATIENT LYING DOWN IN BED SLEEPING, AROUSABLE BY VOICE. NO DISTRESS NOTED. AAOX4, CALM, COOPERATIVE, SKIN COLOR APPROPRIATE TO ETHNICITY, WARM TO TOUCH. HAS COLOSTOMY IN PLACE, PATENT. SKIN IRRITATION, REDNESS NOTED UNDER COLOSTOMY BAG. WILL NOTIFY MD. ABDOMEN SOFT, OBESE. IV SITE INTACT, PATENT, AND INFUSING IVF PER MD ORDERS. SAFETY MEASURES IN PLACE, CALL LIGHT WITHIN REACH. WILL CONTINUE TO MONITOR.
[2018-11-10 08:00] VITALS: BP 113/74
--- NOTE | 2018-11-10 09:10 | NUR ---
PATIENT COMPLAINS OF PAIN ON LOWER ABDOMINAL AREA, MORPHINE GIVEN. WILL CONTINUE TO MONITOR.
--- NOTE | 2018-11-10 11:00 | NUR ---
DR. EPSTEIN AT BEDSIDE REVIEWING PLAN OF CARE WITH PATIENT. ILLEOSTOMY DRESSING CHANGED AND EMPTIED. PATIENT TOLERATED WELL. WILL CONTINUE TO MONITOR.
[2018-11-10] MEDS ORDERED: ONDANSETRON 4 MG/2 ML VIAL IVP PRN (11:10)
--- NOTE | 2018-11-10 11:28 | NUR ---
PATIENT COMPLAINS OF NAUSEA. ZOFRAN GIVEN PER ORDERS. ABDOMINAL PAIN WITHIN TOLERABLE AT THIS TIME. WILL CONTINUE TO MONITOR.
[2018-11-10] MEDS: NACL 0.45% 1,000 ML IV SCH (11:32)
--- NOTE | 2018-11-10 12:14 | NUR ---
PATIENT LYING DOWN IN BED SLEEPING, AROUSABLE BY VOICE. NO DISTRESS NOTED. DENIES ANY PAIN AT THIS TIME. SCHEDULED MEDICATIONS DUE GIVEN. WILL CONTINUE TO MONITOR.
--- NOTE | 2018-11-10 14:55 | NUR ---
PATIENT LYING DOWN IN BED SLEEPING, AROUSABLE BY VOICE. CONDITION UNCHANGED. WILL CONTINUE TO MONITOR.
[2018-11-10 16:00] VITALS: BP 127/67
--- NOTE | 2018-11-10 18:14 | NUR ---
PATIENT SITTING IN BED TALKING ON THE PHONE. PAIN WITHIN TOLERABLE. SCHEDULED MEDICATIONS DUE GIVEN. WILL CONTINUE TO MONITOR.
--- NOTE | 2018-11-10 19:27 | NUR ---
GAVE REPORT TO MOBILE PHLEBOTOMIST NURSE FOR CONTINUITY OF CARE. PATIENT IN STABLE CONDITION.
--- NOTE | 2018-11-10 19:28 | NUR ---
RECD. RESTING IN BED, AWAKE, A/OX4, OBESE. RESPIRATION EVEN AN UNLABORED. IV OF NS AT 75 ML/HR INFUSING, LEFT AC G18. OSTOMY BAG DRAINING GREENISH DARK BROWN FLUID, MODERATE AMOUNT. REDNESS BELOW BAG NOTED, DRESSING DRY AND INTACT. AMBULATORY TO THE BR. PLAN OF CARE FOR THE SHIFT DISCUSSED. VERBALIZED UNDERSTANDING. PAIN IN THE CELLULITIS SITE 12/06. WILL MEDICATE ORDERED.
[2018-11-10] MEDS: HYDROcodone/APAP 5/325 MG 1 TAB TAB PO PRN (20:11)
[2018-11-10 21:36] VITALS: BP 112/57
--- NOTE | 2018-11-10 22:00 | NUR ---
EMPTIED 300 ML DARK BROWNISH LIQUID WITH SOME SOLIDS FROM THE OSTOMY BAG. NO DRAINAGE NOTED AROUND STOMA. Addendum: 11/11/18 at 0754 by Yojana Kyle LVN CORRECTION: NO LEAKAGE NOTED AROUND OSTOMY.
--- NOTE | 2018-11-11 | NUR ---
SLEEPING COMFORTABLY IN BED.
[2018-11-11] MEDS: PIPER/TAZO 3.375GM/D5W PREMIX 50 ML IV SCH ×3 (00:28→12:14)
[2018-11-11] MEDS: MILD SOAP AND WATER TP SCH ×2 (00:46→13:17)
[2018-11-11] MEDS: NACL 0.45% 1,000 ML IV SCH (01:20)
[2018-11-11 04:39] VITALS: BP 132/69
[2018-11-11] MEDS: MORPHINE SULFATE 4 MG/ML SYR IVP PRN ×2 (04:47→12:14)
[2018-11-11 05:47] LABS: BASOPHILS # (AUTO) 0.1 K/uL (0.00-0.22); BASOPHILS % (AUTO) 0.7 % (0.0-2.0); EOSINOPHILS # (AUTO) 0.5 K/uL (0-0.4); EOSINOPHILS % (AUTO) 5.2 % (0.0-4.0); HEMATOCRIT 31.7 % (36-52); HEMOGLOBIN 10.7 g/dL (12.0-18.0); LYMPHOCYTES # (AUTO) 2.1 K/uL (2.0-11.5); LYMPHOCYTES % (AUTO) 21.1 % (20.5-51.1); MEAN CORPUSCULAR HEMOGLOBIN 27 pg (27-31); MEAN CORPUSCULAR HGB CONC 34 g/dL (33-37); MEAN CORPUSCULAR VOLUME 80.4 fL (80-94); MONOCYTES # (AUTO) 0.7 K/uL (0.8-1.0); MONOCYTES % (AUTO) 7.3 % (1.7-9.3); NEUTROPHILS # (AUTO) 6.5 K/uL (1.8-7.7); NEUTROPHILS % (AUTO) 65.7 % (42.2-75.2); PLATELET COUNT (AUTO) 424 K/uL (140-450); RED BLOOD CELL COUNT(AUTO) 3.95 MIL/uL (4.20-6.10); RED CELL DISTRIBUTION WIDTH 16.5 % (11.6-13.7); WHITE BLOOD COUNT (AUTO) 9.9 K/uL (4.8-10.8)
[2018-11-11 06:29] LABS: ANION GAP 15.3 (8-16); CARBON DIOXIDE 23.4 mmol/L (21-32); CREATININE 1.2 mg/dL (0.7-1.3); POTASSIUM 3.7 mmol/L (3.5-5.1)
--- NOTE | 2018-11-11 07:00 | NUR ---
TOLERATED ALL MEDICATIONS DURING SHIFT. CONDITION REMAIN STABLE.
--- NOTE | 2018-11-11 07:25 | NUR ---
ENDORSED TO AM NURSE FOR CONTINUITY OF CARE.
--- NOTE | 2018-11-11 07:26 | NUR ---
Received report from pm nurse Yojana. Pt asleep, respirations even & nonlabored, FLACC 0. Call light within reach.
[2018-11-11] MEDS: HYDROcodone/APAP 5/325 MG 1 TAB TAB PO PRN ×2 (08:53→15:02)
[2018-11-11] MEDS ORDERED: AMOX-1000 PO (08:54)
--- NOTE | 2018-11-11 09:20 | NUR ---
SKIN ASSESSMENT TO LOWER ABDOMEN MULTIPLE SMALL SCABS NO ACTIVE OPEN WOUND. ILEOSTOMY BAG IN PLACE FUNCTIONING WELL. REPORT THE FINDING TO DR. CONDON, WOUND CONSULT CANCEL AND STATED PT. CAN BE DISCHARGE, CHARGE NURSE NOTIFIED.
--- NOTE | 2018-11-11 12:10 | NUR ---
Pt c/o burning pain to peristoma. Noted ileostomy bag with stool; bag emptied out with 180ml liquid brown stool. Detachable bag removed, stoma irrigated with NS & pat dry, then bag reattached. Pt cont to c/o burning to peristoma. Will administer pain med.
--- NOTE | 2018-11-11 13:00 | NUR ---
Pt sitting up in bed, eating lunch. No c/o discomfort. Call light within reach.
--- NOTE | 2018-11-11 14:00 | NUR ---
Written & verbal discharge instruction provided to pt. Pt verbalized understanding of discharge plans. Left ac IV discontinued.
[2018-11-11 16:00] VITALS: BP 128/60
--- NOTE | 2018-11-11 17:10 | NUR ---
Pt discharged to home at this time. Pt amb off unit with steady gait, at lobby waiting for pt. All belongings with pt upon departure. Name band removed.
== END 2018-11-11 17:10 | disposition home or self-care (01) | DRG 383 ==
LOC: MED 01:25 → MTU 04:45
PROVIDERS: ADMIT Internal Medicine; ATTEND Internal Medicine
DX: L03.311 Cellulitis of abdominal wall (principal); E44.1 Mild protein-calorie malnutrition; E66.01 Morbid (severe) obesity due to excess calories; K94.09 Other complications of colostomy; K57.32 Diverticulitis of large intestine without perforation or abscess without bleeding; Z68.41 Body mass index [BMI] 40.0-44.9, adult; D64.9 Anemia, unspecified; E87.6 Hypokalemia; Y83.8 Other surgical procedures as the cause of abnormal reaction of the patient, or of later complication, without mention of misadventure at the time of the procedure; K42.9 Umbilical hernia without obstruction or gangrene; R59.9 Enlarged lymph nodes, unspecified; Z90.49 Acquired absence of other specified parts of digestive tract
CPT/HCPCS: 36415; 80048; 80053; 81003; 83605; 85025; 87040; 87081; 87086; 99285; A4371; J2270; J2405; J2543

== ENCOUNTER 2018-11-20 18:42 | Inpatient (IN) | payer OTHER ==
[~2018-11-20] VITALS: Ht 170.2 cm; Wt 145.1 kg
[~2018-11-20 18:42] MED LIST: AMOX-1000 PO
[2018-11-20 18:47] VITALS: BP 121/94
--- NOTE | 2018-11-20 19:23 | NUR ---
Pt presents to ED with complaints of lower abdominal pain x 2 days ago. Pt also c/o diarrhea to colostomy. Pt states "I feel like I pulled something below my ostomy bag." Colostomy placed in August d/t abscess in his colon per patient. Pt states he had similar pain x3 weeks ago and had a skin infection and was treated with antibiotics. Pt appears uncomfortable, restless in gurney. Pt noted with erythema and drainage to lower abdomen. Pt states he has changed his ostomy bag twice today and there is leakage noted around the site. AOX4, clear speech.
[2018-11-20] MEDS ORDERED: MORPHINE SULFATE 4 MG/ML SYR IVP ONE ×2 (19:40→21:15)
[2018-11-20 20:00] LABS: BASOPHILS # (AUTO) 0.1 K/uL (0.00-0.22); BASOPHILS % (AUTO) 0.9 % (0.0-2.0); EOSINOPHILS # (AUTO) 0.4 K/uL (0-0.4); EOSINOPHILS % (AUTO) 4.6 % (0.0-4.0); HEMATOCRIT 33.9 % (36-52); HEMOGLOBIN 10.9 g/dL (12.0-18.0); LYMPHOCYTES # (AUTO) 1.9 K/uL (2.0-11.5); LYMPHOCYTES % (AUTO) 22.3 % (20.5-51.1); MEAN CORPUSCULAR HEMOGLOBIN 26 pg (27-31); MEAN CORPUSCULAR HGB CONC 32 g/dL (33-37); MEAN CORPUSCULAR VOLUME 81.3 fL (80-94); MONOCYTES # (AUTO) 0.7 K/uL (0.8-1.0); MONOCYTES % (AUTO) 8.6 % (1.7-9.3); NEUTROPHILS # (AUTO) 5.5 K/uL (1.8-7.7); NEUTROPHILS % (AUTO) 63.6 % (42.2-75.2); PLATELET COUNT (AUTO) 415 K/uL (140-450); RED BLOOD CELL COUNT(AUTO) 4.17 MIL/uL (4.20-6.10); RED CELL DISTRIBUTION WIDTH 17.5 % (11.6-13.7); WHITE BLOOD COUNT (AUTO) 8.7 K/uL (4.8-10.8)
--- NOTE | 2018-11-20 20:00 | NUR ---
ASSUMED CARE OF PT AT THIS TIME.
[2018-11-20 20:51] LABS: ANION GAP 12.3 (8-16); CARBON DIOXIDE 27.3 mmol/L (21-32); CREATININE 1.3 mg/dL (0.7-1.3); POTASSIUM 3.6 mmol/L (3.5-5.1)
[2018-11-20 20:56] LABS: TOTAL BILIRUBIN 0.3 mg/dL (0.0-1.0)
--- NOTE | 2018-11-20 21:00 | NUR ---
PT RESTING IN BED ON CELL PHONE AT THIS TIME. NO DISTRESS NOTED.
--- NOTE | 2018-11-20 22:00 | NUR ---
PT RESTING IN BED W/ NO S/S OF DISTRESS NOTED.
[2018-11-20] MEDS ORDERED: PIPERACILLIN/TAZOBACTAM 3.375 GM in DEXTROSE 5% 50 ML IV ONE (22:45)
[2018-11-20] MEDS ORDERED: fentaNYL 0.05 MG/ML VIAL IVP ONE (22:50)
[2018-11-20] MEDS ORDERED: PIPERACILLIN/TAZOBACTAM 3.375 GM VIAL IV ONE (22:59)
[2018-11-20 23:25] VITALS: BP 119/68
--- NOTE | 2018-11-20 23:25 | NUR ---
RECEIVED REPORT FROM MARTHA ER NURSE AT BEDSIDE FOR CONTINUITY OF CARE. PT AAOX4. PT IV NOTED LAC 20G ZOSYN RUNNING. NO SOB NO S/S OF DISTRESS ON RA. OSTOMY S. INTESTINE ABD MIDLINE. PT ORIENTED TO ROOM WILL CONTINUE TO MONITOR.
--- NOTE | 2018-11-21 00:17 | NUR ---
Patient will be admitted to care of Jacek CASTRO. Admited to [facility]. Will go to [id number]. Belongings list completed. Report to TONYA WILKINSON.
[2018-11-21] MEDS: DEXT 5% / NACL 0.9% 1,000 ML IV SCH ×3 (00:45→19:55)
[2018-11-21] MEDS: MORPHINE SULFATE 4 MG/ML SYR IVP PRN ×6 (00:46→21:17)
--- NOTE | 2018-11-21 01:17 | NUR ---
PT STATES HE HAS REVERSAL SX DATE PLANNED W [facility] IN [facility].
--- NOTE | 2018-11-21 02:55 | NUR ---
PT SLEEPING NO SOB NO S/S OF DISTRESS ON RA. WILL CONTINUE TO MONITOR.
[2018-11-21] MEDS ORDERED: PIPERACILLIN/TAZOBACTAM 3.375 GM VIAL IV ONE (04:34)
[2018-11-21] MEDS: PIPER/TAZO 3.375GM/D5W PREMIX 50 ML IV SCH ×3 (05:01→17:17)
[2018-11-21 07:12] LABS: BASOPHILS # (AUTO) 0.1 K/uL (0.00-0.22); EOSINOPHILS # (AUTO) 0.5 K/uL (0-0.4); EOSINOPHILS % (AUTO) 6.2 % (0.0-4.0); HEMATOCRIT 31.6 % (36-52); HEMOGLOBIN 10.3 g/dL (12.0-18.0); LYMPHOCYTES # (AUTO) 1.7 K/uL (2.0-11.5); LYMPHOCYTES % (AUTO) 22.3 % (20.5-51.1); MEAN CORPUSCULAR HEMOGLOBIN 27 pg (27-31); MEAN CORPUSCULAR HGB CONC 33 g/dL (33-37); MEAN CORPUSCULAR VOLUME 81.7 fL (80-94); MONOCYTES # (AUTO) 0.7 K/uL (0.8-1.0); MONOCYTES % (AUTO) 9.2 % (1.7-9.3); NEUTROPHILS # (AUTO) 4.5 K/uL (1.8-7.7); NEUTROPHILS % (AUTO) 61.3 % (42.2-75.2); PLATELET COUNT (AUTO) 387 K/uL (140-450); RED BLOOD CELL COUNT(AUTO) 3.87 MIL/uL (4.20-6.10); RED CELL DISTRIBUTION WIDTH 17.6 % (11.6-13.7); WHITE BLOOD COUNT (AUTO) 7.4 K/uL (4.8-10.8)
--- NOTE | 2018-11-21 07:23 | NUR ---
ENDORSED REPORT TO DAYSHIFT NURSE AT BEDSIDE FOR CONTINUITY OF CARE.
--- NOTE | 2018-11-21 07:24 | NUR ---
RECEIVED REPORT FROM THREAD ROLLER NURSE. PATIENT LYING DOWN IN BED SLEEPING, AROUSABLE BY VOICE. NO DISTRESS NOTED. DENIES ANY PAIN AT THIS TIME. AAOX4, CALM, COOPERATIVE, SKIN COLOR APPROPRIATE TO ETHNICITY. HAS ILLEOSTOMY IN PLACE, REDNESS NOTED ON SKIN WITH EXCORIATION UNDERNEATH ILLEOSTOMY BAG DUE TO LEAKING OF ILLEOSTOMY. RESPIRATIONS EVEN, UNLABORED, ON ROOM AIR. IV SITE INTACT, PATENT, ON IVF PER MD ORDERS. SAFETY MEASURES IN PLACE, CALL LIGHT WITHIN REACH. WILL CONTINUE TO MONITOR.
[2018-11-21 07:54] LABS: ANION GAP 9.9 (8-16); CARBON DIOXIDE 27.1 mmol/L (21-32); CREATININE 1.1 mg/dL (0.7-1.3)
[2018-11-21 08:00] VITALS: BP 119/76
--- NOTE | 2018-11-21 09:42 | NUR ---
PATIENT SITTING DOWN IN BED WATCHING TV. COMPLAINS OF ABD BURNING PAIN, MORPHINE GIVEN. WILL CONTINUE TO MONITOR.
--- NOTE | 2018-11-21 11:38 | NUR ---
PATIENT SITTING IN BED WATCHING TV. NO DISTRESS NOTED. PAIN WITHIN TOLERABLE AT THIS TIME. SCHEDULED MEDICATIONS DUE GIVEN. WILL CONTINUE TO MONITOR.
--- NOTE | 2018-11-21 14:02 | NUR ---
PATIENT SITTING IN BED WATCHING TV. COMPLAINS OF LOW ABD BURNING PAIN, MORPHINE GIVEN PER MD ORDERS. WILL CONTINUE TO MONITOR.
[2018-11-21 16:00] VITALS: BP 122/75
--- NOTE | 2018-11-21 17:29 | NUR ---
PATIENT COMPLAINS OF ABD PAIN, MORPHINE GIVEN. WILL CONTINUE TO MONITOR.
--- NOTE | 2018-11-21 19:28 | NUR ---
GAVE REPORT TO AGRONOMY INSTRUCTOR NURSE FOR CONTINUITY OF CARE. PATIENT IN STABLE CONDITION.
--- NOTE | 2018-11-21 19:29 | NUR ---
RECD. RESTING IN BED, AWAKE, A/OX4, OBESE. RESPIRATION EVEN AND UNLABORED. IV OF D5NS AT 100 ML/HR INFUSING LEFT AC G20. OSTOMY BAG INTACT. NO LEAKAGE NOTED. EXCORIATION BELOW COVERED WITH DRESSING DRY AND INTACT. PLAN OF CARE FOR THE NIGHT DISCUSSED. VERBALIZED UNDERSTANDING. PAIN IN THE ABDOMEN 11/05, WILL MEDICATE ORDERED. ON IV ANTIBIOTICS.
[2018-11-21] MEDS: ONDANSETRON 4 MG/2 ML VIAL IVP PRN (20:44)
--- NOTE | 2018-11-21 20:44 | NUR ---
NAUSEATED, MEDICATED WITH ZOFRAN 4 MG. IVP BY CHARGE NURSE NELLIE.
--- NOTE | 2018-11-21 21:14 | NUR ---
NO NAUSEA NOTED, WATCHING TV.
--- NOTE | 2018-11-21 21:21 | NUR ---
GAVE IVP/PRN MORPHINE FOR 7/10 PAIN. WILL CONTINUE TO MONITOR PT FOR PAIN RELIEF.
--- NOTE | 2018-11-21 21:47 | NUR ---
WATCHING TV. ABDOMINAL PAIN DECREASED, 2/10.
--- NOTE | 2018-11-21 22:00 | NUR ---
CARE PLAN REVIEWED WITH KALE COCHRAN.
--- NOTE | 2018-11-21 22:30 | NUR ---
VERBALIZED CRAVING FOR BURGER AND SANDWICH. EXPLAINED HE CANNOT HAVE IT BECAUSE HE IS ON CLEAR LIQUID DIET.
[2018-11-22] VITALS: BP 114/73
[2018-11-22] MEDS: PIPER/TAZO 3.375GM/D5W PREMIX 50 ML IV SCH ×4 (01:08→18:10)
[2018-11-22] MEDS: DEXT 5% / NACL 0.9% 1,000 ML IV SCH ×3 (02:00→18:10)
[2018-11-22 03:54] VITALS: BP 103/56
[2018-11-22] MEDS: MORPHINE SULFATE 4 MG/ML SYR IVP PRN ×5 (03:54→20:56)
--- NOTE | 2018-11-22 04:00 | NUR ---
PT C/O SEVERE PAIN IN LOWER ABD 8/10 PAIN GIVEN IVP MORPHINE 3MG ORDERED. WILL MONITOR PAIN RELIEF.
--- NOTE | 2018-11-22 04:30 | NUR ---
SLEEPING COMFORTABLY IN BED.
--- NOTE | 2018-11-22 06:28 | NUR ---
PATIENT HAS BEEN SCREENED AND CATEGORIZED HIGH NUTRITION RISK. PATIENT WILL BE SEEN WITHIN 1-2 DAYS OF ADMISSION. 11/21/18-11/22/18 NE KNOX MS, RDN
--- NOTE | 2018-11-22 07:15 | NUR ---
CONDITION REMAIN STABLE. ENDORSED TO AM NURSE FOR CONTINUITY OF CARE.
[2018-11-22 07:17] LABS: BASOPHILS # (AUTO) 0.1 K/uL (0.00-0.22); BASOPHILS % (AUTO) 0.8 % (0.0-2.0); EOSINOPHILS # (AUTO) 0.5 K/uL (0-0.4); EOSINOPHILS % (AUTO) 7.5 % (0.0-4.0); HEMATOCRIT 29.9 % (36-52); HEMOGLOBIN 9.8 g/dL (12.0-18.0); LYMPHOCYTES # (AUTO) 1.4 K/uL (2.0-11.5); LYMPHOCYTES % (AUTO) 20.9 % (20.5-51.1); MEAN CORPUSCULAR HEMOGLOBIN 27 pg (27-31); MEAN CORPUSCULAR HGB CONC 33 g/dL (33-37); MONOCYTES # (AUTO) 0.5 K/uL (0.8-1.0); MONOCYTES % (AUTO) 7.4 % (1.7-9.3); NEUTROPHILS # (AUTO) 4.4 K/uL (1.8-7.7); NEUTROPHILS % (AUTO) 63.4 % (42.2-75.2); PLATELET COUNT (AUTO) 366 K/uL (140-450); RED BLOOD CELL COUNT(AUTO) 3.64 MIL/uL (4.20-6.10); RED CELL DISTRIBUTION WIDTH 17.5 % (11.6-13.7); WHITE BLOOD COUNT (AUTO) 6.9 K/uL (4.8-10.8)
--- NOTE | 2018-11-22 07:17 | NUR ---
RECEIVED BEDSIDE REPORT FROM WATER PUMP ASSEMBLER NURSE. PATIENT IS AOX4. PATIENT IS RESTING ON BED AT THIS TIME. DENIES OF PAIN. NO SIGNS OF DISTRESS NOTED IN RA. ABLE TO AMBULATE WITH STEADY. OSTOMY IS IN R ABDOMINAL REGION. BAG WITH MINIMAL LIQUID STOOL. DENIES OF DISCOMFORT ON OSTOMY AREA. IV PATENT, INTACT AND INFUSING. IV SITE CLEAN, AND DRY. RESPIRATORY RATE IS EVEN AND UNLABORED. REVIEW PLAN OF CARE WITH PATIENT, AND PATIENT VERBALIZED UNDERSTANDING. BED IN LOW POSITION, CALL LIGHT WITHIN REACH. WILL CONTINUE TO MONITOR.
[2018-11-22 08:00] VITALS: BP 103/54
--- NOTE | 2018-11-22 09:37 | NUR ---
11/22/18 RD INITIAL ASSESSMENT COMPLETED PLEASE REFER TO NUTRITION ASSESSMENT UNDER CARE ACTIVITY FOR ESTIMATED NUTRITIONAL NEEDS. RD RECOMMENDATIONS: 1. CONTINUE ON CLEAR LIQUID DIET MEDICALLY APPROPRIATE. 2. CONSIDERING ADVANCING DIET TO FULL LIQUID AND THEN TO REGULAR TOLERATED. 3. CONSULT RDN PRN. 4. RD WILL F/U 2-3 DAYS; HIGH RISK. NE KNOX, MS, RDN
--- NOTE | 2018-11-22 10:05 | NUR ---
PRE MEDICATED WITH MORPHINE PRIOR TO OSTOMY BAG CHANGE. CHANGE OSTOMY BAG AND APPLIED DRY GAUZE AND ABDOMINAL PAD. EMPTIED 140 ML FROM OSTOMY BAG. PATIENT C/O MINIMAL DISCOMFORT. WILL CONTINUE TO MONITOR.
[2018-11-22 16:00] VITALS: BP 119/67
--- NOTE | 2018-11-22 18:14 | NUR ---
SCHEDULED MEDICATIONS DUE GIVEN. WILL CONTINUE TO MONITOR.
--- NOTE | 2018-11-22 19:35 | NUR ---
GAVE REPORT TO SPA COORDINATOR NURSE FOR CONTINUITY OF CARE. PATIENT IN STABLE CONDITION.
--- NOTE | 2018-11-22 19:36 | NUR ---
RECD. RESTING IN BED, WATCHING TV. IV OF D5NS AT 100 ML/HR INFUSING, LEFT AC G20. OSTOMY BAG DRAINING MINIMAL AMOUNT OF LIQUID BROWNISH STOOLS. EXCORIATION BELOW OSTOMY BAG, COVERED WITH DRESSING DRY AND INTACT. PAIN IN THE ABDOMEN 11/05, WILL MEDICATE ORDERED. PLAN OF CARE FOR THE SHIFT DISCUSSED. VERBALIZED UNDERSTANDING.
[2018-11-22 20:00] VITALS: BP 121/68
--- NOTE | 2018-11-22 20:00 | NUR ---
Patient's Plan of Care was discussed and reviewed with CUSTOMER EXPERIENCE SPECIALIST: NU MARTÍNEZ.
--- NOTE | 2018-11-22 21:20 | NUR ---
DATABASE OPERATOR CALLED, PT IS POSITIVE FOR MRSA FOR THE NARES, INFORMED CHARGE NURSE NELLIE.
--- NOTE | 2018-11-22 21:35 | NUR ---
TRANSFERRED PATIENT TO ISOLATION ROOM 116.
[2018-11-22 22:06] LABS: ANION GAP 14.8 (8-16); CREATININE 1.2 mg/dL (0.7-1.3); POTASSIUM 3.8 mmol/L (3.5-5.1)
[2018-11-22 22:10] LABS: ALBUMIN 2.7 g/dL (3.4-5.0); TOTAL BILIRUBIN 0.4 mg/dL (0.0-1.0)
--- NOTE | 2018-11-23 | NUR ---
SLEEPING COMFORTABLY IN BED.
[2018-11-23] MEDS: PIPER/TAZO 3.375GM/D5W PREMIX 50 ML IV SCH ×5 (00:18→23:02)
[2018-11-23] MEDS: MORPHINE SULFATE 4 MG/ML SYR IVP PRN ×5 (02:18→21:26)
--- NOTE | 2018-11-23 05:30 | NUR ---
AWAKE, ASSISTED TO PUT ON SOCKS. COMPLAINT OF ABD PAIN ATTENDED PROMPTLY, MEDICATED ORDERED.
--- NOTE | 2018-11-23 05:50 | NUR ---
INFORMED DR. BAR PATIENT IS + FOR MRSA OF NARES, ORDERED ISOLATION FOR PATIENT.
[2018-11-23 06:43] LABS: ANION GAP 7.7 (8-16); CARBON DIOXIDE 26.8 mmol/L (21-32); CREATININE 1.1 mg/dL (0.7-1.3); POTASSIUM 3.5 mmol/L (3.5-5.1)
--- NOTE | 2018-11-23 07:15 | NUR ---
ENDORSED TO AM SHIFT NURSE FOR CONTINUITY OF CARE.
[2018-11-23 08:00] VITALS: BP 112/60
[2018-11-23 08:23] LABS: BASOPHILS # (AUTO) 0.1 K/uL (0.00-0.22); EOSINOPHILS # (AUTO) 0.4 K/uL (0-0.4); HEMOGLOBIN 9.6 g/dL (12.0-18.0); LYMPHOCYTES # (AUTO) 2.4 K/uL (2.0-11.5); LYMPHOCYTES % (AUTO) 30.2 % (20.5-51.1); MEAN CORPUSCULAR HEMOGLOBIN 27 pg (27-31); MEAN CORPUSCULAR HGB CONC 32 g/dL (33-37); MEAN CORPUSCULAR VOLUME 82.6 fL (80-94); MONOCYTES # (AUTO) 0.5 K/uL (0.8-1.0); MONOCYTES % (AUTO) 6.5 % (1.7-9.3); NEUTROPHILS # (AUTO) 4.6 K/uL (1.8-7.7); NEUTROPHILS % (AUTO) 57.3 % (42.2-75.2); PLATELET COUNT (AUTO) 358 K/uL (140-450); RED BLOOD CELL COUNT(AUTO) 3.63 MIL/uL (4.20-6.10); RED CELL DISTRIBUTION WIDTH 17.5 % (11.6-13.7)
[2018-11-23] MEDS: DEXT 5% / NACL 0.9% 1,000 ML IV SCH ×2 (08:29→21:26)
[2018-11-23] MEDS: CHLORHEXADINE GLUC 2% CLOTH TP SCH (08:30)
[2018-11-23] MEDS: MUPIROCIN CA NASAL 2% 1GM TUBE NS SCH (08:30)
[2018-11-23] MEDS: ENOXAPARIN 40 MG/0.4 ML SYR SUBQ SCH (08:32)
[2018-11-23] MEDS ORDERED: Z-GUARD PASTE TP SCH (10:30)
--- NOTE | 2018-11-23 10:30 | NUR ---
WOUND CARE EVALUATION NOTE REASON FOR EVALUATION: SKIN REDNESS AND MOISTURE ASSOCIATED SKIN DAMAGE ON LOW ABD COMPLETE SKIN ASSESSMENT DONE ON THIS 32Y/O MALE ADMITTED TO [facility] FOR LOWER ABDOMINAL PAIN. PAST MEDICAL HX INCLUDE DIVERTICULITIS AND COLECTOMY WITH ILEOSTOMY. RETRACTION OF SKIN INFERIOR TO OSTOMY NOTED WHICH WAS PREVENTING PROPER SEAL OF OSTOMY. DRAINAGE FROM THE ILEOSTOMY NOTED TO BE LEAKING TO THE LOWER ABD. INTEGUMENTARY -BLE SKIN DRY AND INTACT -ERYTHEMA ON THE PERISTOMAL SKIN -MOISTURE ASSOCIATED SKIN DAMAGE ON THE LOWER ABD RECOMMENDATIONS: -CLEANSE PERISTOMAL SKIN WITH NS AND PAT DRY. APPLY SUREPREP SKIN PREP WIPES TO THE PERISTOMAL SKIN -CLEANSE LOWER ABD WITH REMEDY NO RINSE CLEANSING SPRAY. DRY AREA THOROUGHLY. APPLY Z-GUARD AFTER CLEANSING. -CHANGE OSTOMY BAG PRN WITH SOILING. -KEEP SKIN CLEAN AND DRY AT ALL TIMES RECOMMENDATIONS DISCUSSED WITH PRIMARY RN PLEASE CONTACT WOUND CARE NURSE FOR ANY QUESTIONS AND CHANGES IN SKIN CONDITION
[2018-11-23] MEDS: Z-GUARD PASTE TP SCH (13:15)
[2018-11-23] MEDS: ONDANSETRON 4 MG/2 ML VIAL IVP PRN (14:31)
--- NOTE | 2018-11-23 14:37 | NUR ---
PATIENT SITTING IN BED WATCHING TV. COMPLAINS OF NAUSEA AND ABD PAIN. ZOFRAN AND MORPHINE GIVEN. WILL CONTINUE TO MONITOR.
[2018-11-23 16:00] VITALS: BP 116/64
--- NOTE | 2018-11-23 17:40 | NUR ---
PATIENT SITTING IN BED WATCHING TV. NO DISTRESS NOTED. PAIN WITHIN TOLERABLE. SCHEDULED MEDICATIONS DUE GIVEN. WILL CONTINUE TO MONITOR.
--- NOTE | 2018-11-23 18:16 | NUR ---
PATIENT SITTING IN BED ON HIS PHONE. COMPLAINS OF PAIN, MORPHINE GIVEN. WILL CONTINUE TO MONITOR.
--- NOTE | 2018-11-23 19:35 | NUR ---
GAVE REPORT TO FIRE PATROL NURSE FOR CONTINUITY OF CARE. PATIENT IN STABLE CONDITION.
--- NOTE | 2018-11-23 19:36 | NUR ---
REPORT RECEIVED FROM AM NURSE AT BEDSIDE. PT IN STABLE CONDITION. AAOX4. INTRODUCED SELF TO PT. BOARD UPDATED. NO COMPLAINTS OF PAIN. NO SOB. AFEBRILE. IV SITE L AC 20G RUNNING D5NS@75ML/HR PATENT AND INTACT. SKIN WARM, DRY, AND INTACT WITH NO OPEN WOUNDS. BED LOCKED IN LOW POSITION. CALL VALENCIA WITHIN REACH. SAFETY PRECAUTIONS IN PLACE. ALL NEEDS MET AT THIS TIME. WILL CONTINUE TO MONITOR.
--- NOTE | 2018-11-23 21:26 | NUR ---
MORPHINE GIVEN FOR 9/10 ABDOMINAL PAIN. PT TOLERATED WELL.
--- NOTE | 2018-11-23 23:02 | NUR ---
VICTOR MANUEL HUNG AND RUNNING. PT TOLERATING WELL.
[2018-11-24] VITALS: BP 108/59
[2018-11-24] MEDS: ONDANSETRON 4 MG/2 ML VIAL IVP PRN (00:41)
[2018-11-24] MEDS: Z-GUARD PASTE TP SCH ×3 (00:41→13:26)
--- NOTE | 2018-11-24 00:41 | NUR ---
ZOFRAN GIVEN FOR NAUSEA. PT TOLERATED WELL.
[2018-11-24] MEDS: MORPHINE SULFATE 4 MG/ML SYR IVP PRN ×5 (00:51→15:46)
--- NOTE | 2018-11-24 00:51 | NUR ---
MORPHINE GIVEN FOR 9/10 ABDOMINAL PAIN. PT TOLERATED WELL.
--- NOTE | 2018-11-24 03:15 | NUR ---
PT SLEEPING COMFORTABLY BUT AROUSABLE. NO S/S OF DISTRESS NOTED. BREATHING EVEN, UNLABORED, AND WNL. WILL CONTINUE TO MONITOR.
[2018-11-24] MEDS: PIPER/TAZO 3.375GM/D5W PREMIX 50 ML IV SCH ×3 (05:00→18:00)
--- NOTE | 2018-11-24 05:00 | NUR ---
VICTOR MANUEL HUNG AND RUNNING. PT TOLERATING WELL.
--- NOTE | 2018-11-24 05:59 | NUR ---
MORPHINE GIVEN FOR 9/10 ABD PAIN. PT TOLERATED WELL.
--- NOTE | 2018-11-24 07:20 | NUR ---
REPORT GIVEN TO AM NURSE AT BEDSIDE. PT IN STABLE CONDITION.
--- NOTE | 2018-11-24 07:22 | NUR ---
RECEIVED BEDSIDE REPORT FROM TUGBOAT PILOT NURSE. PATIENT IS AOX4. PATIENT IS SLEEPING ON BED AT THIS TIME. DENIES OF PAIN. NO SIGNS OF DISTRESS IN RA NOTED. ABLE TO AMBULATE WITH STEADY. OSTOMY IS IN R ABDOMINAL REGION. BAG WITH MINIMAL LIQUID STOOL. DENIES OF DISCOMFORT ON OSTOMY AREA. IV PATENT, INTACT AND INFUSING PER MD ORDER. IV SITE CLEAN, AND DRY. RESPIRATORY RATE IS EVEN AND UNLABORED. REVIEW PLAN OF CARE WITH PATIENT, AND PATIENT VERBALIZED UNDERSTANDING. BED IN LOW POSITION, CALL LIGHT WITHIN REACH. WILL CONTINUE TO MONITOR.
[2018-11-24 08:00] VITALS: BP 103/61
[2018-11-24] MEDS ORDERED: AMOX-1000 PO (08:43)
[2018-11-24] MEDS: ENOXAPARIN 40 MG/0.4 ML SYR SUBQ SCH (08:45)
[2018-11-24] MEDS: MUPIROCIN CA NASAL 2% 1GM TUBE NS SCH (09:09)
[2018-11-24] MEDS: CHLORHEXADINE GLUC 2% CLOTH TP SCH (09:10)
--- NOTE | 2018-11-24 09:15 | NUR ---
ADMINISTERED MEDS PER MD ORDER. PATIENT TOLERATED WELL. NO SIGNS OF DISTRESS IN RA NOTED. EMPTIED 140 ML FROM ILEOSTOMY BAG. WILL CONTINUE TO MONITOR.
[2018-11-24] MEDS: DEXT 5% / NACL 0.9% 1,000 ML IV SCH (10:59)
--- NOTE | 2018-11-24 12:15 | NUR ---
PATIENT SITTING IN BED. MORPHINE GIVEN. COLOSTOMY BAG AND DRESSING CHANGED WELL WOUND DRESSING CHANGED PER MD ORDERS. PATIENT TOLERATED WELL. OTHER SCHEDULED MEDICATIONS DUE GIVEN. WILL CONTINUE TO MONITOR.
--- NOTE | 2018-11-24 14:00 | NUR ---
PATIENT LYING DOWN IN BED SLEEPING, AROUSABLE BY VOICE. CONDITION UNCHANGED. NO DISTRESS NOTED. WILL CONTINUE TO MONITOR.
[2018-11-24 16:00] VITALS: BP 119/68
--- NOTE | 2018-11-24 18:00 | NUR ---
DISCHARGE INSTRUCTIONS GIVEN TO PATIENT IN PREFERRED LANGUAGE OF [place]UG[place]. INSTRUCTIONS ON FOLLOW-UP VISIT WITH DR. EPSTEIN, NEW/CHANGED MEDICATION REGIMEN, DIET REGIMEN AND DISEASE MANAGEMENT OF ILLEOSTOMY PROVIDED. ANSWERED ALL OF PATIENT'S QUESTIONS REGARDING DISCHARGE. PATIENT VERBALIZED COMPLETE UNDERSTANDING. PATIENT TO GET DRESSED AND AWAIT FOR FRIEND TO PICK HIM UP. WILL CONTINUE TO MONITOR.
--- NOTE | 2018-11-24 18:44 | NUR ---
PATIENT IV LINE INFILTRATED. PATIENT TO BE DISCHARGED SOON, AWAITING FOR FRIEND TO PICKUP. PATIENT WILL BE ON ORAL ANTIBIOTICS AT HOME. REFUSED NEW IV LINE INSERTION. ZOSYN NOT GIVEN AT THIS TIME. WILL CONTINUE TO MONITOR.
--- NOTE | 2018-11-24 19:02 | NUR ---
PATIENT'S FAMILY ARRIVED. ESCORTED PATIENT TO THE LOBBY. PATIENT IS CHARGED AT THIS TIME.
== END 2018-11-24 19:02 | disposition home or self-care (01) | DRG 383 ==
LOC: MED 18:42 → MTU 22:51
PROVIDERS: ADMIT Internal Medicine; ATTEND Internal Medicine
DX: L03.311 Cellulitis of abdominal wall (principal); R65.11 Systemic inflammatory response syndrome (SIRS) of non-infectious origin with acute organ dysfunction; E66.01 Morbid (severe) obesity due to excess calories; N32.1 Vesicointestinal fistula; K57.92 Diverticulitis of intestine, part unspecified, without perforation or abscess without bleeding; Z68.43 Body mass index [BMI] 50.0-59.9, adult; D64.9 Anemia, unspecified; Z90.49 Acquired absence of other specified parts of digestive tract; Z93.2 Ileostomy status; Z93.3 Colostomy status; Z79.899 Other long term (current) drug therapy
CPT/HCPCS: 36415; 80048; 80053; 85025; 87081; 96365; 96375; 99285; A4371; J1650; J2270; J2405; J2543; J3010; J7042; J7060

== ENCOUNTER 2018-12-05 21:35 | Emergency (ER) | payer OTHER ==
[~2018-12-05] VITALS: Ht 180.3 cm; Wt 146.5 kg
[2018-12-05 21:50] VITALS: BP 135/86
--- NOTE | 2018-12-05 22:05 | NUR ---
PT TAKEN TO BED 8
--- NOTE | 2018-12-05 22:05 | NUR ---
ASSUMED CARE OF PT AT THIS TIME. C/O PAIN NEAR STOMA SITE. PT STATES FEELING, "A LITTLE BALL." AAOX4 WITH EVEN AND STEADY GAIT; PATIENT STATES PAIN OF 8/10; VSS; PATIENT POSITIONED FOR COMFORT; HOB ELEVATED; BEDRAILS UP X2; BED DOWN. ER MD MADE AWARE OF PT STATUS. WILL CONTINUE TO MONITOR.
[2018-12-05] MEDS ORDERED: NACL 0.9% 1,000 ML IV SCH (22:09)
--- NOTE | 2018-12-05 22:42 | NUR ---
PT TAKEN TO CT
[2018-12-05 22:43] LABS: BASOPHILS # (AUTO) 0.1 K/uL (0.00-0.22); BASOPHILS % (AUTO) 0.6 % (0.0-2.0); EOSINOPHILS # (AUTO) 0.2 K/uL (0-0.4); EOSINOPHILS % (AUTO) 1.7 % (0.0-4.0); HEMATOCRIT 35.2 % (36-52); HEMOGLOBIN 11.3 g/dL (12.0-18.0); LYMPHOCYTES % (AUTO) 13.5 % (20.5-51.1); MEAN CORPUSCULAR HEMOGLOBIN 26 pg (27-31); MEAN CORPUSCULAR HGB CONC 32 g/dL (33-37); MEAN CORPUSCULAR VOLUME 81.8 fL (80-94); MONOCYTES # (AUTO) 0.8 K/uL (0.8-1.0); MONOCYTES % (AUTO) 5.8 % (1.7-9.3); NEUTROPHILS # (AUTO) 11.3 K/uL (1.8-7.7); PLATELET COUNT (AUTO) 429 K/uL (140-450); RED CELL DISTRIBUTION WIDTH 17.3 % (11.6-13.7); WHITE BLOOD COUNT (AUTO) 14.5 K/uL (4.8-10.8)
[2018-12-05 22:53] LABS: NEUTROPHILS % (AUTO) 78.4 % (42.2-75.2)
--- NOTE | 2018-12-05 22:56 | NUR ---
PT RETURN FROM CT
[2018-12-05 23:00] LABS: ANION GAP 9.5 (8-16); CARBON DIOXIDE 24.9 mmol/L (21-32); POTASSIUM 3.4 mmol/L (3.5-5.1); TOTAL BILIRUBIN 0.4 mg/dL (0.0-1.0)
--- NOTE | 2018-12-06 00:50 | NUR ---
Dr. Shoemaker evaluating patient at bedside.
[2018-12-06] MEDS ORDERED: MORPHINE SULFATE 4 MG/ML SYR IVP ONE (01:00)
[2018-12-06 02:20] VITALS: BP 135/72
--- NOTE | 2018-12-06 02:20 | NUR ---
Patient discharged with v/s stable. Written and verbal after care instructions given and explained. Patient alert, oriented and verbalized understanding of instructions. Ambulatory with steady gait. All questions addressed prior to discharge. ID band removed. Patient advised to follow up with PMD. Rx of CIPRO, FLAGYL, AND NORCO given. Patient educated on indication of medication including possible reaction and side effects. Opportunity to ask questions provided and answered.
== END 2018-12-06 02:20 | disposition home or self-care (01) ==
LOC: MED 21:35
DX: K57.32 Diverticulitis of large intestine without perforation or abscess without bleeding (principal); K46.9 Unspecified abdominal hernia without obstruction or gangrene; Z79.2 Long term (current) use of antibiotics; Z90.49 Acquired absence of other specified parts of digestive tract
CPT/HCPCS: 36415; 74177; 80053; 83690; 85025; 96374; 99284; J2270; Q9967

== ENCOUNTER 2018-12-09 17:35 | Emergency (ER) | payer OTHER ==
[~2018-12-09] VITALS: Ht 180.3 cm; Wt 147.4 kg
[2018-12-09 17:47] VITALS: BP 141/78
--- NOTE | 2018-12-09 17:47 | NUR ---
PT AMBULATED TO ER BED 10
--- NOTE | 2018-12-09 17:50 | NUR ---
32 Y/O PT C/O ABD PAIN X2 DAYS. REPORTS PAIN AROUND OSTOMY BAG, BAG IS LEAKING AND REPORTS PAIN 10/10, REDNESS AND IRRITATION. PT DENIES N/V/D; AAOX4, PERRL, WITH EVEN AND STEADY GAIT; LUNGS CLEAR BL, BREATHING UNLABORED; HR EVEN AND REGULAR, BL PERIPHERAL PULSES PRESENT; BS ACTIVE X4. PT DENIES ANY FEVER, CP, SOB, OR COUGH AT THIS TIME; PT STATES 10/10 PAIN AT THIS TIME; VSS; PATIENT POSITIONED FOR COMFORT; HOB ELEVATED; BEDRAILS UP X2; BED DOWN.
--- NOTE | 2018-12-09 18:17 | NUR ---
DR. MCMAHAN EVALUATING AT BEDSIDE.
[2018-12-09] MEDS ORDERED: oxyCODONE/APAP 5/325 MG 1 TAB TAB PO ONE (18:25)
--- NOTE | 2018-12-09 18:51 | NUR ---
PT BEING TAKEN TO X-RAY
--- NOTE | 2018-12-09 19:10 | NUR ---
REPORT GIVEN TO JJ WILKINSON AT THIS TIME.
--- NOTE | 2018-12-09 19:12 | NUR ---
pt sitting up in bed[facility] pt is non compliant with putting on his colostomy bag. pt is keeping a towel on it and letting in drain in the towel. pt has redness and swelling around the site/skin. pt is consistantly touching the ostomy with his bare hands, causing irritation. ostomy is intact and is a reddish/pink color-normal. pt was education about the risk factors for causing infection due to consistant touching of the ostomy, could be spreading bacteria. er md made aware of status. pt was instructed to put on his colostomy bag.
[2018-12-09 20:39] VITALS: BP 141/78
--- NOTE | 2018-12-09 20:39 | NUR ---
Patient discharged with v/s stable. Written and verbal after care instructions given and explained. Patient verbalized understanding. Ambulatory with steady gait. All questions addressed prior to discharge. Advised to follow up with PMD.
== END 2018-12-09 20:39 | disposition home or self-care (01) ==
LOC: MED 17:35
DX: R10.33 Periumbilical pain (principal); L29.9 Pruritus, unspecified; Z90.49 Acquired absence of other specified parts of digestive tract
CPT/HCPCS: 74018; 99283

== ENCOUNTER 2018-12-10 21:24 | Emergency (ER) | payer OTHER ==
[~2018-12-10] VITALS: Ht 180.3 cm; Wt 142.9 kg
[2018-12-10 21:38] VITALS: BP 117/55
--- NOTE | 2018-12-10 21:41 | NUR ---
PT AMBULATED TO BED 3 WITH VSS.
--- NOTE | 2018-12-10 21:43 | NUR ---
PT TAKEN TO BED 4
--- NOTE | 2018-12-10 21:50 | NUR ---
PT BIB SELF FOR SEVERE ABD PAIN. PT REPORTS 10/10 BURNING ABD PAIN AROUND OSTOMY SITE THAT SPREADS THROUGH ENTIRE ABD. PT WAS HERE YESTERDAY AND TOLD TO SEE SPECIALIST. PT STATED HE SAW SPECIALIST TODAY, AND OSTOMY CARE NURSE AT [facility]. PER PT BOTH SPECIALIST AND OSTOMY NURSE TOLD HIM HIS SKIN LOOKS INFECTED. RED SCALEY IRRITATED SKIN VISIBLE AROUND OSTOMY SITE, ABD APPEARS DISTENDED, OSTOMY HAS SOFT GREEN STOOL PRESENT IN BAG. ER MD TO SEE PT. MEDHX: CHOLECYSTECTOMY, OSTOMY, DIVERTICULITIS RX: NORCO, LEVOFLAXACIN
[2018-12-10] MEDS ORDERED: ACETAMINOPHEN 325 MG TAB PO ONE (22:00)
--- NOTE | 2018-12-10 22:12 | NUR ---
Dr. Ojeda evaluating patient at bedside.
--- NOTE | 2018-12-10 22:27 | NUR ---
DR HUSSEIN PERFORMED DRESSING CHANGE. DR USED 3X8 NON-ADHESIVE DRESSING ON ABD BELOW OSTOMY, COVERED WITH 4X4 GAUZE, AND SECURED WITH PAPER TAPE TO PREVENT LEAKAGE FROM OSTOMY.
[2018-12-10 22:32] VITALS: BP 117/55
== END 2018-12-10 22:32 | disposition home or self-care (01) ==
LOC: MED 21:24
DX: K94.02 Colostomy infection (principal); L25.8 Unspecified contact dermatitis due to other agents
CPT/HCPCS: 99282